=== PATIENT | female | born 2000 | race Caucasian/White ===

== ENCOUNTER 2018-04-22 19:22 | Emergency (ER) | payer BC ==
[2018-04-22] MEDS ORDERED: DEXAMETHASONE 10 MG/ML VIAL IVP ONE (19:58)
[2018-04-22] MEDS ORDERED: NS 1,000 ML IV ONE (19:58)
[2018-04-22] MEDS ORDERED: PROMETHAZINE HCL 25 MG/ML INJ IVP ONE (19:59)
[2018-04-22 20:12] LABS: PLATELET COUNT 197 10^3/uL (150-400)
--- NOTE | 2018-04-22 20:21 | EDPHY ---
H & P Time Seen by Provider: 04/22/18 19:48 HPI/ROS: CHIEF COMPLAINT: Right-sided numbness HISTORY OF PRESENT ILLNESS: Patient is a history of migraine headaches but this 1 today was different. At 1:00 p.m. She started having sharp a right- sided headache with right-sided neck pain which is different than her usual migraines, associated with numbness and tingling in her right arm and right leg. Her migraines are usually dull. This headache is not associated with photophobia or nausea. She continues to have some right-sided arm numbness but no weakness. No recent injury or trauma, no vertigo or dizziness. No acceleration or deceleration injury today. REVIEW OF SYSTEMS: Eye: no change in vision or double vision ENT: no sore throat or hearing abnormalities Cardiac: no chest pain or syncope Pulmonary: no cough or SOB Abdomen: no vomiting, diarrhea, abdominal pain Musculoskeletal: HPI HPI Skin: no rash Neuro: HPI Constitutional: no fever : no urinary symptoms A comprehensive 10 point review of systems is otherwise negative aside from elements mentioned in the history of present illness. PAST MEDICAL HISTORY: Anxiety, right knee surgery, migraine headaches Social history: Nonsmoker General Appearance: Alert and conversant, cooperative. Eyes: No scleral icterus. Pupils equal reactive extraocular motion intact no nystagmus. ENT, Mouth: Normal mucous membranes. Normal tympanic membranes. Respiratory: Normal respiratory effort, breath sounds equal, lungs are clear to auscultation. Cardiovascular: Regular rate and rhythm. Gastrointestinal: Abdomen is soft and non tender. Neurological: Alert, face symmetric, no pronator drift, fluent speech, normal [id number] bilaterally. She does have decreased sensation to the right arm to light touch but sensation is normal to both lower extremities. Skin: Warm and dry, no rashes. Musculoskeletal: No peripheral edema. Normal range of motion of the neck. Psychiatric: Not agitated. Emergency Department course/MDM: Discussed angiography because of different headache, neck pain, unilateral neurologic symptoms. Evaluate for dissection or other vascular problem. Patient states understanding and consents. Otherwise will treat for a more likely atypical migraine with dexamethasone, Benadryl, Phenergan. 2225: Feels better, additional oral ibuprofen and then she would like to go home which I think is reasonable. Results discussed including the single low- density area in the right side, Neurology referral. Smoking Status: Never smoked Constitutional: Initial Vital Signs Temperature (C) 36.8 C 04/22/18 19:26 Heart Rate 94 04/22/18 19:26 Respiratory Rate 18 04/22/18 19:26 Blood Pressure 130/75 H 04/22/18 19:26 O2 Sat (%) 93 04/22/18 19:26 O2 Delivery Mode Room Air Allergies/Adverse Reactions: No Known Allergies Allergy (Unverified 04/22/18 19:25) Home Medications: Medication Instructions Recorded Lexapro 04/22/18 Medical Decision Making - Diagnostics Imaging Results: Imaging Impressions Head CT 04/22/18 20:16 Impression: 1. No acute intracranial hemorrhage. 2. Small focal right parietal white matter hypodensity. Differential considerations include a primary demyelinating process, focal subacute ischemia , or infection. Neurologic workup and MRI is recommended for further evaluation as clinically warranted. Dr. Hewitt was notified of these findings in person at 10:29 PM on 04/22/2018 Head CTA 04/22/18 20:16 Impression: 1. There is no hemodynamically significant ICA stenosis. 2. Patent vertebral arteries without evidence of dissection. CT ANGIOGRAPHY OF THE BRAIN: The major vessels of the [place] are well visualized, and there is no aneurysm, vascular malformation, flow-limiting stenosis, or acute occlusion identified. The distal cervical, petrous, cavernous , and supraclinoid portions of the internal carotid arteries are patent. The A1 and A2 segments are patent as are the M1, M2, and M3 trifurcation vessels. With regards to the posterior circulation, the distal vertebral arteries are patent. The posterior inferior cerebellar arteries, vertebrobasilar confluence, anterior inferior cerebellar arteries, basilar artery, superior cerebellar arteries, and the posterior cerebral arteries are patent. The posterior communicating arteries are patent. Impression: 1. Essentially unremarkable CT angiogram of the brain. Dr. Hewitt was notified of these findings in person at 10:30 PM on 04/22/2018 Neck CTA 04/22/18 20:16 Impression: 1. There is no hemodynamically significant ICA stenosis. 2. Patent vertebral arteries without evidence of dissection. CT ANGIOGRAPHY OF THE BRAIN: The major vessels of the [place] are well visualized, and there is no aneurysm, vascular malformation, flow-limiting stenosis, or acute occlusion identified. The distal cervical, petrous, cavernous , and supraclinoid portions of the internal carotid arteries are patent. The A1 and A2 segments are patent as are the M1, M2, and M3 trifurcation vessels. With regards to the posterior circulation, the distal vertebral arteries are patent. The posterior inferior cerebellar arteries, vertebrobasilar confluence, anterior inferior cerebellar arteries, basilar artery, superior cerebellar arteries, and the posterior cerebral arteries are patent. The posterior communicating arteries are patent. Impression: 1. Essentially unremarkable CT angiogram of the brain. Dr. Hewitt was notified of these findings in person at 10:30 PM on 04/22/2018 2220: CT head and angiography reviewed with Dr. Vela, she has a single low density area in the right parietal area but otherwise is negative. No dissection, no bleed, no tumor. The patient is warned about the abnormality noted above and recommended neurology follow-up. Imaging: Discussed imaging studies w/ call or contact centre coach Radiologist Differential Diagnosis: Differential diagnosis considered for headache including but not limited to subarachnoid hemorrhage, migraine headache, tension headache and infectious causes such as meningitis, pharyngitis and sinusitis. - Data Points Laboratory Results: Laboratory Results 04/22/18 19:40 04/22/18 19:40 04/22/18 04/22/18 04/22/18 19:40 19:40 19:40 WBC 6.87 10^3/uL 10^3/uL (3.80-9.50) RBC 5.07 10^6/uL 10^6/uL (4.18-5.33) Hgb 14.3 g/dL g/dL (12.6-16.3) Hct 42.3 % % (38.0-47.0) MCV 83.4 fL fL (81.5-99.8) MCH 28.2 pg pg (27.9-34.1) MCHC 33.8 g/dL g/dL (32.4-36.7) RDW 12.0 % % (11.5-15.2) Plt Count 197 10^3/uL 10^3/uL (150-400) MPV 10.7 fL fL (8.7-11.7) Neut % (Auto) 60.6 % % (39.3-74.2) Lymph % (Auto) 33.5 % % (15.0-45.0) [place] % (Auto) 4.9 % % (4.5-13.0) Eos % (Auto) 0.6 % % (0.6-7.6) Baso % (Auto) 0.3 % % (0.3-1.7) Nucleat RBC Rel Count 0.0 % % (0.0-0.2) Absolute Neuts (auto) 4.16 10^3/uL 10^3/uL (1.70-6.50) Absolute Lymphs (auto) 2.30 10^3/uL 10^3/uL (1.00-3.00) Absolute Monos (auto) 0.34 10^3/uL 10^3/uL (0.30-0.80) Absolute Eos (auto) 0.04 10^3/uL 10^3/uL (0.03-0.40) Absolute Basos (auto) 0.02 10^3/uL 10^3/uL (0.02-0.10) Absolute Nucleated RBC 0.00 10^3/uL 10^3/uL (0-0.01) Immature Gran % 0.1 % % (0.0-1.1) Immature Gran # 0.01 10^3/uL 10^3/uL (0.00-0.10) Sodium 138 mEq/L mEq/L (135-145) Potassium 3.5 mEq/L mEq/L (3.5-5.2) Chloride 101 mEq/L mEq/L (97-110) Carbon Dioxide 27 mEq/l mEq/l (22-31) Anion Gap 10 mEq/L mEq/L (6-14) BUN 11 mg/dL mg/dL (7-23) Creatinine 0.8 mg/dL mg/dL (0.6-1.0) Estimated GFR > 60 Glucose 113 mg/dL H mg/dL (70-100) Calcium 10.0 mg/dL mg/dL (8.5-10.4) Beta HCG, Qual NEGATIVE Medications Given: Discontinued Medications Dexamethasone (Decadron Injection) 10 mg IVP EDNOW ONE Stop: 04/22/18 19:59 Last Admin: 04/22/18 20:09 Dose: 10 mg Diphenhydramine HCl (Benadryl Injection) 25 mg IVP EDNOW ONE Stop: 04/22/18 19:59 Last Admin: 04/22/18 20:08 Dose: 25 mg Sodium Chloride (Ns) 1,000 mls @ 0 mls/hr IV ONCE ONE; Wide Open PRN Reason: Protocol Stop: 04/22/18 19:59 Last Admin: 04/22/18 20:07 Dose: 1,000 mls Ibuprofen (Motrin) 600 mg PO EDNOW ONE Stop: 04/22/18 22:32 Last Admin: 04/22/18 22:34 Dose: 600 mg Promethazine HCl (Phenergan) 12.5 mg IVP EDNOW ONE Stop: 04/22/18 20:00 Last Admin: 04/22/18 20:07 Dose: 12.5 mg Departure - Departure Disposition: Home, Routine, Self-Care Clinical Impression: Headache Qualifiers: Headache type: unspecified Headache chronicity pattern: acute headache Intractability: not intractable Qualified Code(s): R51 - Headache Condition: Good Instructions: Migraine Headache (ED) Additional Instructions: You had normal brain and neck vessel imaging. You are given a Neurology referral for follow-up. Referrals: Bishop Marvin MD [Medical Doctor] - 5-7 days, call for appt.
[2018-04-22] MEDS ORDERED: IOPAMIDOL (ISOVUE 370) 100 ML BTL IV ONE ×2 (20:36→21:14)
[2018-04-22 22:23] VITALS: BP 114/83
[2018-04-22] MEDS ORDERED: IBUPROFEN 600 MG TAB PO ONE (22:31)
== END 2018-04-22 22:37 | disposition home or self-care (01) ==
DX: G43.909 Migraine, unspecified, not intractable, without status migrainosus (principal); F41.9 Anxiety disorder, unspecified; E86.9 Volume depletion, unspecified
CPT/HCPCS: 96374; J1100; J1200; J2550; Q9967

== ENCOUNTER 2018-04-26 22:53 | Emergency (ER) | payer BC ==
--- NOTE | 2018-04-26 23:02 | EDPHY ---
H & P Stated Complaint: ADAMES, NAUSEA STARTED WEDNESDAY Time Seen by Provider: 04/26/18 23:02 HPI/ROS: HPI CHIEF COMPLAINT: Headache and nausea. HISTORY OF PRESENT ILLNESS: 17-year-old female, otherwise healthy, does have a history of anxiety, migraine headaches, was seen here on Wednesday or 4 days ago, for headache, right-sided numbness and tingling, that time she had a CT angiogram head and neck that was unremarkable. CT head without contrast has been reviewed, stable vital signs and normal blood work at that time. She presents back to the emergency room she reports to me that the right-sided numbness and tingling has resolved. However she has a persistent right-sided sharp stabbing headache. She also reports sometimes radiates down her right neck. She denies stiff neck. She denies fever, denies rash, denies vomiting but complains of severe nausea. Denies cough, urinary symptoms. This is not the worst headache of her life. It has been going on for 4 days. Is not thunderclap it is right-sided sharp stabbing. She does have migraine headaches however states this different. She typically gets a frontal throbbing headache this is right-sided sharp stabbing. No visual disturbance no loss of vision no blurry vision no focal numbness or tingling. She decided come back to the emergency room due the symptoms persisting. She arrives here and is afebrile nontoxic-appearing she has a normal neurological exam. No acute distress in fact she is laughing with her friends at bedside. Past Medical History: Anxiety, migraine headache Past Surgical History: No recent surgery Social History: [employer] student, denies drugs alcohol tobacco. Family History: Noncontributory ROS REVIEW OF SYSTEMS: 10 Systems were reviewed and negative with the exception of the elements mentioned in the history of present illness. Exam Constitutional appears very well nontoxic triage nursing summary reviewed, vital signs reviewed, awake/alert. Vital signs stable afebrile Eyes normal conjunctivae and sclera, EOMI, PERRLA. HENT head and neck exam are unremarkable neck is not stiff, full range of motion, supple, no bruit on exam, normal inspection, atraumatic, moist mucus membranes, no epistaxis, neck supple/ no meningismus, no raccoon eyes. Respiratory clear to auscultation bilaterally, normal breath sounds, no respiratory distress, no wheezing. Cardiovascular rate normal, regular rhythm, no murmur, no edema, distal pulses normal. Gastrointestinal soft, non-tender, no rebound, no guarding, normal bowel sounds, no distension, no pulsatile mass. Genitourinary no CVA tenderness. Musculoskeletal no midline vertebral tenderness, full range of motion, no calf swelling, no tenderness of extremities, no meningismus, good pulses, neurovascularly intact. Skin pink, warm, & dry, no rash, skin atraumatic. Neurologic normal neurological exam, normal cranial nerves, no neck stiffness, awake, alert and oriented x 3, AAOx3, moves all 4 extremities equally, motor intact, sensory intact, CN II-XII intact, normal cerebellar, normal vision, normal speech. Psychiatric normal mood/affect. Heme/Lymph/Immune no lymphadenopathy. Differential Diagnosis: Includes but is not limited to in a particular order migraine headache, tension headache, cluster headache, dehydration, electrolyte disturbance, infection Medical Decision Making: Plan for this patient IV establishment IV fluid bolus , treat for migraine headache with migraine cocktail, repeat blood work, and urinalysis, influenza, and re-evaluate. Here in the emergency room the patient appears very well nontoxic laughing in the room with her friends her neck is supple, no meningitis signs on exam. No stiff neck. Previous ER visit reviewed as well as lab work, CT imaging. Re-evaluation: 0350: Patient re-evaluated this time states her headache is completely resolved. On re-examination she has a normal neurological exam. Vital signs are stable and her blood work is unremarkable. She denies any headache, no focal numbness or tingling no weakness. I do not feel that she would benefit from further imaging here at the emergency room. Nor do I feel that she has encephalitis meningitis. I do recommend she follows up with Neurology as previously referred. She does also understand return emergency room develops worsening headache, vomiting, numbness or tingling, not doing well. She is comfortable this plan. 0505: Patient re-evaluated resting comfortably again normal neurological exam. She is requesting discharge home. I do recommend she follows up with Neurology on outpatient basis. [id number]: Spoke with [facility] Dr. Yaakov Olson, discussed case in detail, recommends following up with Neurology outpatient. Does not feel she needs MRI today. 0535: I spoke with the patient as well as the patient's mom over the phone who lives in [place] with an extensive discussion and we decided that plan will be for MRI brain with and without contrast rule out MS. Plan to obtain MRI. Patient agrees for this. After MRI is obtained patient most likely get to go home. 0700: The plan is for patient to get MRI and then get MRI results and go home. Patient resting comfortably at this time she has normal neurological exam denies headache and feels better. MRI as been ordered and pending Fioricet prescription provided Return precautions discussed with the patient also she understands follow-up with Neurology. MRI of the brain with and without contrast read to me by Dr. Oneal at 7: 59 a.m.. No evidence MS or acute ischemia. Small lesion in the right temporal lobe that will need follow-up and discussed this with the patient. Follow-up MRI in 6 months for stability. Patient not having any seizures. Again I recommend she follows up with Neurology on outpatient basis. Discussed at length the patient she agrees with this plan and will follow up with Neurology outpatient. Return precautions discussed. Source: Patient - Personal History LMP (Females 10-55): 15-21 Days Ago Current Tetanus Diphtheria and Acellular Pertussis (TDAP): Yes - Medical/Surgical History Hx Asthma: No Hx Chronic Respiratory Disease: No Hx Diabetes: No Hx Cardiac Disease: No Hx Renal Disease: No Hx Cirrhosis: No Hx Alcoholism: No Hx HIV/AIDS: No Hx Splenectomy or Spleen Trauma: No Other PMH: anxiety, r knee surgery - Social History Smoking Status: Never smoked Constitutional: Initial Vital Signs Temperature (C) 36.5 C 04/26/18 22:57 Heart Rate 114 H 04/26/18 22:57 Respiratory Rate 16 04/26/18 22:57 Blood Pressure 122/88 H 04/26/18 22:57 O2 Sat (%) 94 04/26/18 22:57 O2 Delivery Mode Room Air Allergies/Adverse Reactions: No Known Allergies Allergy (Unverified 04/22/18 19:25) Home Medications: Medication Instructions Recorded Lexapro 04/22/18 Acet/Caffeine/Buta Fioricet 1 each PO Q6 #10 tab 04/27/18 [Fioricet (*)] Medical Decision Making - Data Points Laboratory Results: Laboratory Results 04/26/18 23:20 04/26/18 23:20 04/27/18 04/26/18 04/26/18 00:36 23:40 23:20 WBC RBC Hgb Hct MCV MCH MCHC RDW Plt Count MPV Neut % (Auto) Lymph % (Auto) [place] % (Auto) Eos % (Auto) Baso % (Auto) Nucleat RBC Rel Count Absolute Neuts (auto) Absolute Lymphs (auto) Absolute Monos (auto) Absolute Eos (auto) Absolute Basos (auto) Absolute Nucleated RBC Immature Gran % Immature Gran # Sodium Potassium Chloride Carbon Dioxide Anion Gap BUN Creatinine Estimated GFR Glucose Calcium Beta HCG, Qual NEGATIVE Urine Color PALE YELLOW Urine Appearance CLEAR Urine pH 5.0 (5.0-7.5) Ur Specific [place] 1.004 (1.002-1.030) Urine Protein NEGATIVE (NEGATIVE) Urine Ketones NEGATIVE (NEGATIVE) Urine Blood NEGATIVE (NEGATIVE) Urine Nitrate NEGATIVE (NEGATIVE) Urine Bilirubin NEGATIVE (NEGATIVE) Urine Urobilinogen NEGATIVE EU EU (0.2-1.0) Ur Leukocyte Esterase TRACE H (NEGATIVE) Urine RBC 1-3 /hpf /hpf (0-3) Urine WBC 1-3 /hpf /hpf (0-3) Ur Epithelial Cells TRACE /lpf /lpf (NONE-1+) Urine Mucus TRACE /lpf /lpf (NONE-1+) Urine Glucose NEGATIVE (NEGATIVE) Nasal Influenza A PCR NEGATIVE FOR FLU A (NEGATIVE) Nasal Influenza B PCR NEGATIVE FOR FLU B (NEGATIVE) 04/26/18 04/26/18 23:20 23:20 WBC 9.22 10^3/uL 10^3/uL (3.80-9.50) RBC 5.11 10^6/uL 10^6/uL (4.18-5.33) Hgb 14.5 g/dL g/dL (12.6-16.3) Hct 42.5 % % (38.0-47.0) MCV 83.2 fL fL (81.5-99.8) MCH 28.4 pg pg (27.9-34.1) MCHC 34.1 g/dL g/dL (32.4-36.7) RDW 12.0 % % (11.5-15.2) Plt Count 229 10^3/uL 10^3/uL (150-400) MPV 10.5 fL fL (8.7-11.7) Neut % (Auto) 60.1 % % (39.3-74.2) Lymph % (Auto) 34.8 % % (15.0-45.0) [place] % (Auto) 4.1 % L % (4.5-13.0) Eos % (Auto) 0.5 % L % (0.6-7.6) Baso % (Auto) 0.3 % % (0.3-1.7) Nucleat RBC Rel Count 0.0 % % (0.0-0.2) Absolute Neuts (auto) 5.53 10^3/uL 10^3/uL (1.70-6.50) Absolute Lymphs (auto) 3.21 10^3/uL H 10^3/uL (1.00-3.00) Absolute Monos (auto) 0.38 10^3/uL 10^3/uL (0.30-0.80) Absolute Eos (auto) 0.05 10^3/uL 10^3/uL (0.03-0.40) Absolute Basos (auto) 0.03 10^3/uL 10^3/uL (0.02-0.10) Absolute Nucleated RBC 0.00 10^3/uL 10^3/uL (0-0.01) Immature Gran % 0.2 % % (0.0-1.1) Immature Gran # 0.02 10^3/uL 10^3/uL (0.00-0.10) Sodium 140 mEq/L mEq/L (135-145) Potassium 3.9 mEq/L mEq/L (3.5-5.2) Chloride 106 mEq/L mEq/L (97-110) Carbon Dioxide 22 mEq/l mEq/l (22-31) Anion Gap 12 mEq/L mEq/L (6-14) BUN 12 mg/dL mg/dL (7-23) Creatinine 0.8 mg/dL mg/dL (0.6-1.0) Estimated GFR > 60 Glucose 97 mg/dL mg/dL (70-100) Calcium 10.1 mg/dL mg/dL (8.5-10.4) Beta HCG, Qual Urine Color Urine Appearance Urine pH Ur Specific [place] Urine Protein Urine Ketones Urine Blood Urine Nitrate Urine Bilirubin Urine Urobilinogen Ur Leukocyte Esterase Urine RBC Urine WBC Ur Epithelial Cells Urine Mucus Urine Glucose Nasal Influenza A PCR Nasal Influenza B PCR Medications Given: Discontinued Medications Dexamethasone (Decadron Injection) 10 mg IVP EDNOW ONE Stop: 04/26/18 23:13 Last Admin: 04/26/18 23:33 Dose: 10 mg Diphenhydramine HCl (Benadryl Injection) 50 mg IVP EDNOW ONE Stop: 04/26/18 23:13 Last Admin: 04/26/18 23:32 Dose: 50 mg Sodium Chloride (Ns) 1,000 mls @ 0 mls/hr IV ONCE ONE; Wide Open PRN Reason: Protocol Stop: 04/26/18 23:13 Last Admin: 04/26/18 23:24 Dose: 1,000 mls Ketorolac Tromethamine (Toradol) 30 mg IVP EDNOW ONE Stop: 04/26/18 23:13 Last Admin: 04/26/18 23:34 Dose: 30 mg Promethazine HCl (Phenergan) 6.25 mg IVP ONCE ONE Stop: 04/26/18 23:17 Last Admin: 04/26/18 23:30 Dose: 6.25 mg Departure - Departure Disposition: Home, Routine, Self-Care Clinical Impression: Headache Qualifiers: Headache type: other vascular headache Qualified Code(s): G44.1 - Vascular headache, not elsewhere classified Condition: Good Instructions: General Headache (ED) Additional Instructions: 1. Follow up closely with Neurology 2. Return emergency room if worsening symptoms Referrals: GIANCARLO HANNON [Other] - As per Instructions Bishop Marvin MD [Medical Doctor] - As per Instructions Prescriptions: Acet/Caffeine/Buta Fioricet [Fioricet (*)] 1 each PO Q6 #10 tab
[2018-04-26] MEDS ORDERED: KETOROLAC 30 MG/1 ML SDV IVP ONE (23:12)
[2018-04-26] MEDS ORDERED: DEXAMETHASONE 10 MG/ML VIAL IVP ONE (23:12)
[2018-04-26] MEDS ORDERED: NS 1,000 ML IV ONE (23:12)
[2018-04-26] MEDS ORDERED: PROMETHAZINE HCL 25 MG/ML INJ IVP ONE (23:16)
[2018-04-26 23:57] LABS: PLATELET COUNT 229 10^3/uL (150-400)
[2018-04-27] MEDS ORDERED: GADOBUTROL 10 ML VIAL IVP ONE (06:09)
[2018-04-27 07:26] VITALS: BP 132/79
== END 2018-04-27 08:28 | disposition home or self-care (01) ==
DX: R51 Headache (principal); R11.0 Nausea
CPT/HCPCS: 96374; A9585; J1100; J1200; J1885; J2550